=== PATIENT | female | born 1975 | race Caucasian/White ===

== ENCOUNTER 2017-03-11 09:39 | Emergency (ER) | payer OTHER ==
[2017-03-11 10:05] LABS: BASOPHILS 0.2 % (0.0-2.0); EOSINOPHILS 4.6 % (0.0-6.0); EOSINOPHILS# 0.2 X 10^3uL (0.0-0.4); HEMATOCRIT 38.4 % (36.0-48.0); HEMOGLOBIN 12.9 g/dL (12.0-16.0); LYMPHOCYTES 35.9 % (20.0-40.0); LYMPHOCYTES# 1.6 X 10^3uL (0.8-3.8); MEAN CELL VOLUME 86.3 fL (80.0-100.0); MEAN CORPUS. HGB CONCENTRATION 33.7 g/dL (32.0-36.0); MEAN PLATELET VOLUME 9.5 fL (7.4-10.4); MONOCYTES 8.3 % (2.0-10.0); MONOCYTES# 0.4 X 10^3uL (0.2-1.0); NEUTROPHILS# 2.4 X 10^3uL (2.6-6.7); PLATELET COUNT 274 X 10^3uL (130-440); RED BLOOD COUNT 4.45 X 10^6uL (4.20-6.10); RED CELL DISTRIBUTION WIDTH 12.9 % (11.5-14.5); WHITE BLOOD COUNT 4.6 X 10^3uL (3.9-10.7)
[2017-03-11] MEDS ORDERED: ONDANSETRON HCL 4 MG/2 ML VIAL ONE ×2 (10:09→11:12)
[2017-03-11] MEDS ORDERED: NORMAL SALINE IV ONE (10:15)
[2017-03-11] MEDS ORDERED: FOSPHENYTOIN SODIUM IV ONE (10:15)
[2017-03-11 10:16] LABS: BLOOD UREA NITROGEN 7 mg/dL (7-17); CALCIUM 9.3 mg/dL (8.4-10.2); CHLORIDE 107 mmol/L (98-107); EST GLOMERULAR FILTRATION RATE > 60 mL/min; GLUCOSE 109 mg/dL (70-100); POTASSIUM 3.5 mmol/L (3.5-5.1); SODIUM 140 mmol/L (137-145)
[2017-03-11] MEDS ORDERED: ACETAMINOPHEN 325 MG TABLET PO ONE (10:29)
--- NOTE | 2017-03-11 12:33 | ER NURSING DOCUMENTATION ---
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 pt has a seizure disorder with her last seizure was in 2010. pt has a lip lac. Transition of care: [place]. 09:42 Method Of Arrival: EMS: 410 st 09:44 Acuity: DEBBIE 2 st Triage Assessment: 09:42 General: Appears uncomfortable, Behavior is cooperative. Pain: Complains of pain in st lower amrit border and headache. Pain currently is 4 out of 10 on a pain scale. EENT: duane lac threw the lip. Neuro: Level of Consciousness is awake, alert, Oriented to person, place, time, Chief Accountant are equal bilaterally Moves all extremities. Reports pt states that she feel like she had a seizure and that the nausea before is normal for her.. Cardiovascular: No deficits noted. Respiratory: No deficits noted. GI: Reports nausea. Injury Description: Laceration sustained to lower amrit border is jagged, 0.5 to 2.5 cm long. Historical: - Allergies: No known drug Allergies; - Home Meds: 1. Prozac Oral 2. Motrin Oral - PMHx: epiolepsy; - PSHx: tube tied; d and C; - Tetanus: < 10 years. - Ebola Screening: : Patient denies exposure to infectious person. Patient denies travel to an Ebola-affected area in the 21 days before illness onset. . - Social history: Smoking status: Patient states was never smoker of tobacco. Patient/guardian denies using alcohol, marijuana. Screenin:41 Infectious Disease Risk None. Abuse screen: Denies threats or abuse. Denies injuries st from another. pt feels safe at home. Nutritional screening: No deficits noted. Assessment: 11:41 General: pt is currently on her menstrual cycle. . st 11:54 General: pt states she is feeling better except that she is feeling dizzy.. st 12:09 General: pt states she does not feel like she should go yet. She wants to wait for the st dizziness to improve. . Vital Signs: 09:33 BP 124 / 68 (auto/); Pulse 62; Resp 16; Pain 4/10; st 09:38 Pulse Ox 94% ; st 10:10 BP 124 / 68 (auto/); st 10:13 Pulse 66; Pulse Ox 97% ; st 10:30 BP 104 / 58 (auto/); st 10:33 Resp 70; Pulse Ox 95% ; st 10:58 BP 94 / 53 (auto/); Pulse Ox 92% ; st 11:00 BP 94 / 50 (auto/); st 11:03 Pulse 69; Pulse Ox 93% ; st 11:30 BP 98 / 51 (auto/); st 11:33 Pulse 69; Pulse Ox 94% ; Pain 2/10; st Sondra Coma Score: 11:35 Eye Response: spontaneous(4). Verbal Response: oriented(5). Motor Response: obeys cd commands(6). Total: 15. ED Course: 09:42 Patient arrived in ED. lr3 09:[address] 09:44 Leyla Mckeon, RN is Primary Nurse. st 09:[address] 09:45 Valuables Remains with patient Patient has correct armband on for positive st identification. Call light in reach. Side rails up X2. Pulse Ox - RN Monitoring Only NIBP On - RN Monitoring Only. 09:52 Mitch Jones MD is Attending Physician. cd 09:52 Assisted to bedside commode. st 10:[address] 10:[address] 11:03 Assist Provider Assist provider with laceration repair on lower amrit border using st sutures. Set up tray. Performed by Mitch Jones MD. 11:55 Assisted to bedside commode. st Administered Medications: 09:52 Drug: NS 0.9% 1000 ml; Route: IV; Rate: bolus; Site: right antecubital; st 11:01 Follow up: IV Status: Completed infusion; IV Intake: 1000ml st 10:10 Drug: Cerebyx 850 mg; Route: IVPB; Site: right antecubital; st 11:01 Follow up: IV Status: Completed infusion; IV Intake: 100ml st 10: Drug: Acetaminophen 975 mg; Route: PO; st 12:32 Follow up: Response: Pain is decreased st 11: Drug: Zofran 4 mg; Route: IVP; Infused Over: 2 mins; Site: right antecubital; st 11: Follow up: Response: Nausea is decreased st 11: Drug: NS 0.9% 1000 ml; Route: IV; Rate: bolus; Site: right antecubital; st 11:54 Follow up: IV Status: Completed infusion; IV Intake: 1000ml st 11: Drug: Bacitracin Ointment (500 unit/g) 1 application; Route: Topical; Site: wound; st 12: Drug: Zofran 4 mg; Route: PO; 12:32 Follow up: Response: Medication administered at discharge. st Intake: 11:01 IV: 100ml; Total: 100ml. st 11: IV: 1000ml; Total: 1100ml. st IV: 1000ml; Total: 2100ml. st Outcome: 11:25 Discharge ordered by . 12:[address] : Condition: stable 12:32 Discharge instructions given to patient, Instructed on discharge instructions, follow up and referral plans. medication usage, Prescriptions given X 2. :32 Patient [address] the ED. st 03/12 18:09 Discharge F/U Call: Spoke with: patient. Have you filled your prescriptions? yes. nf Overall Care on a scale of 1-10 with 10 being the best care, you rate our care as: Other comments: states she feels improved and laceration is healing Further F/U necessary? None needed Signatures: Leyla Mckeon, RN Inna Mills RN RN nf Daley, Chris, MD MD cd Roach, Lelia [id number]
--- NOTE | 2017-03-11 12:33 | ER PHYSICIAN DOCUMENTATION ---
Physician Documentation [facility] Name:Rosette Meza Age:41 yrs Sex:Female :1975 Arrival Date:03/11/2017 Time:09:39 BedTrauma-B Private MD: Mitch Lane Disposition: 03/11 11:15 Chart complete. cd Disposition: 03/11/17 11:25 Discharged to Home/Self Care. 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 - Condition is Good. - Discharge Instructions: DEHYDRATION (6y-Adult), LACERATION, Lip/Mouth, SEIZURE, Recurrent [Adult]. - Prescriptions for Clindamycin HCl 150 mg Oral - take 1 capsule by ORAL route every 6 hours for 3 days; 12 capsule. Dilantin Kapseal 100 mg Oral Capsule - take 1 capsule by ORAL route every 8 hours; 30 capsule. - Medical Reconciliation form form. - Follow up: Private Physician; When: 03/16/2017; Reason: Continuance of care, Staple/Suture removal. - Problem is new. - Symptoms are resolved. - Notes: Keep wound clean, dry and covered. Apply Bacitracin Ointment to wound every day. Ice pack on and off to lip today. Tylenol for pain. Drink 2 - 3 quarts of water every day to stay hydrated. Take Dilantin Kapseals 100mg by mouth every 8 hours for 10 days. Follow up with your Neurologist in 7 - 10 days to see if you need to continue Dilantin. Take Clindamycin 150mg by mouth every 6 hours for 3 days to prevent infection. No driving, horseback riding or any activities where she could fall during a seizure until cleared by her Neurologist. HPI: 09:45 This 41 yrs old Female presents to ER via EMS with complaints of Seizure and cd lip lac. 09:45 The patient presents after having a single isolated seizure, that lasted 1 minute(s), cd the episode(s) was witnessed, by family. Character of seizure(s): Loss of consciousness: the patient experienced loss of consciousness, Motor activity: generalized, shaking all over, Incontinence: none, Apnea: the patient did not experience apnea, Circulation: the patient did not experience evidence of pulse disturbance. Seizure onset: just prior to arrival. Context: the seizure(s) was witnessed, by family, occurred outdoors, occurred while the patient was sitting. Seizure Hx: Original onset: since childhood,\ Cause: unknown, Last seizure: The patient's last seizure was approximately 6 year(s) ago, Seizure medications: none. Associated injury: Head/face: lower lip, laceration, 1.5 cm(s). EMS care: IV fluids, supplemental oxygen. The patient has experienced similar episodes in the past, with the last episode occurring 6 year(s) ago. Historical: - Allergies: No known drug Allergies; - Home Meds: 1. Prozac Oral 2. Motrin Oral - PMHx: epiolepsy; - PSHx: tube tied; d and C; - Tetanus: < 10 years. - Ebola Screening: : Patient denies exposure to infectious person. Patient denies travel to an Ebola-affected area in the 21 days before illness onset. . - Social history: Smoking status: Patient states was never smoker of tobacco. Patient/guardian denies using alcohol, marijuana. ROS: 11:35 Eyes: Negative for injury, pain, redness, discharge, blurry vision and loss of vision. cd Cardiovascular: Negative for chest pain, palpitations, edema and pleuritic pain. Respiratory: Negative for shortness of breath, dyspnea on exertion, cough, sputum production, wheezing, hemoptysis and pleuritic chest pain. Abdomen/GI: Negative for abdominal pain, nausea, vomiting, diarrhea, constipation, distension, melena, hematochezia and hematemesis. Back: Negative for injury, pain or muscle spasms. MS/Extremity: Negative for injury, deformity, edema, calf tenderness, pain or coldness. 11:35 Skin: Negative for injury, rash, itching and discoloration. cd 11:35 Constitutional: Positive for poor PO intake, Negative for body aches, chills, fever. 11:35 ENT: Positive for injury or acute deformity, laceration, of the lower lip through and through bite wound. 11:35 Neck: Negative for pain with movement, pain at rest, bony tenderness. 11:35 Neuro: Positive for headache, seizure activity, Negative for altered mental status, dizziness, speech changes, syncope, near syncope, tingling. 11:35 All other systems are negative. Exam: Chest/axilla: Normal chest wall appearance and motion. Nontender with no deformity. No lesions are appreciated. Cardiovascular: Regular rate and rhythm with a normal S1 and S2. No gallops, murmurs, or rubs. Normal PMI, no JVD. No pulse deficits. Respiratory: Lungs have equal breath sounds bilaterally, clear to auscultation and percussion. No rales, rhonchi or wheezes noted. No increased work of breathing, no retractions or nasal flaring. Abdomen/GI: Soft, non-tender, with normal bowel sounds. No distension or tympany. No guarding or rebound. No evidence of tenderness throughout. Back: No spinal tenderness. No costovertebral tenderness. Full range of motion. 11:35 MS/ Extremity: Pulses equal, no cyanosis. Neurovascular intact. Full, normal range cd of motion. 11:35 Constitutional: The patient appears alert, awake, non-diaphoretic, non-toxic, well developed, well nourished, anxious, in obvious distress, mildly distressed. 11:35 Head/face: Noted is a laceration(s), that is jagged, 1.5 cm(s), of the lower inner and outer lip. 11:35 Eyes: Pupils: equal, round, and reactive to light and accomodation, Extraocular movements: intact throughout. 11:35 ENT: TM's: are normal, Mouth: Lips: lacerated, approximately 1.5 cm(s), Posterior pharynx: is normal, Dental exam: normal, Voice: is normal. 11:35 Neck: External neck: is normal, no acute changes, C-spine: vertebral tenderness, is not appreciated, ROM/movement: is normal, no acute changes. 11:35 Skin: Appearance: normal except for affected area. 11:35 Neuro: Orientation: is normal, Mentation: lucid, slow to respond, Memory: is normal, Cranial nerves: CN II- XII are normal as tested, Motor: moves all fours, Sensation: is normal. Vital Signs: 09:33 BP 124 / 68 (auto/); Pulse 62; Resp 16; Pain 4/10; st 09:38 Pulse Ox 94% ; st 10:10 BP 124 / 68 (auto/); st 10:13 Pulse 66; Pulse Ox 97% ; st 10:30 BP 104 / 58 (auto/); st 10:33 Resp 70; Pulse Ox 95% ; st 10:58 BP 94 / 53 (auto/); Pulse Ox 92% ; st 11:00 BP 94 / 50 (auto/); st 11:03 Pulse 69; Pulse Ox 93% ; st 11:30 BP 98 / 51 (auto/); st 11:33 Pulse 69; Pulse Ox 94% ; Pain 2/10; st Sondra Coma Score: 11:35 Eye Response: spontaneous(4). Verbal Response: oriented(5). Motor Response: obeys cd commands(6). Total: 15. MDM: 09:52 Patient medically screened. cd 09:55 Differential diagnosis: seizure, Dehydration, Lip Laceration. cd 10:00 Data interpreted: Pulse oximetry: on room air is 92 %. Interpretation: normal. cd 11:15 Counseling: I had a detailed discussion with the patient and/or guardian regarding: the cd historical points, exam findings, and any diagnostic results supporting the discharge/admit diagnosis, lab results, the need for outpatient follow up, for a recheck, for a referral to a specialist, with the patient's primary care provider, a neurologist, to return to the emergency department if symptoms worsen or persist or if there are any questions or concerns that arise at home. Response to treatment: the patient's symptoms have markedly improved after treatment, the patient's condition has returned to base line, the patient is now symptom free, patient is well hydrated. and as a result, I will discharge patient. 11:20 Neurological re-evaluation: normal neurological exam including cranial nerves, cd orientation, mentation, motor and sensory exam, cerebellar testing, GCS normal, and normal gait. Data reviewed: vital signs, nurses notes, EMS record, old medical records, lab test result(s), and as a result, I will discharge patient. 03/11 10:13 Order name: CBC AUTO DIF, MDIF/RMOR IF IND; Complete Time: 10:21 EDMS 03/11 10:21 Interpretation: Normal. cd 03/11 10:19 Order name: BASIC METABOLIC PANEL; Complete Time: 10:21 EDMS 03/11 10:21 Interpretation: Normal. cd 03/11 10:19 Order name: MAGNESIUM; Complete Time: 10:21 EDMS 03/11 10:21 Interpretation: Normal. cd Dispensed Medications: 09:52 Drug: NS 0.9% 1000 ml; Route: IV; Rate: bolus; Site: right antecubital; st 11:01 Follow up: IV Status: Completed infusion; IV Intake: 1000ml st 10:10 Drug: Cerebyx 850 mg; Route: IVPB; Site: right antecubital; st 11:01 Follow up: IV Status: Completed infusion; IV Intake: 100ml st 10:17 Drug: Acetaminophen 975 mg; Route: PO; st 12:32 Follow up: Response: Pain is decreased st 11:01 Drug: Zofran 4 mg; Route: IVP; Infused Over: 2 mins; Site: right antecubital; st 11:26 Follow up: Response: Nausea is decreased st 11:17 Drug: NS 0.9% 1000 ml; Route: IV; Rate: bolus; Site: right antecubital; st 11:54 Follow up: IV Status: Completed infusion; IV Intake: 1000ml st 11:26 Drug: Bacitracin Ointment (500 unit/g) 1 application; Route: Topical; Site: wound; st 12:32 Drug: Zofran 4 mg; Route: PO; st 12:32 Follow up: Response: Medication administered at discharge. st Signatures: Leyla Mckeon RN RN Mitch Hastings MD MD cd
[2017-03-11] MEDS ORDERED: ONDANSETRON ODT 4 MG TAB.RAPDIS ONE (12:43)
== END 2017-03-11 12:33 | disposition home or self-care (01) ==
LOC: ER 09:39
DX: G40.309 Generalized idiopathic epilepsy and epileptic syndromes, not intractable, without status epilepticus (principal); E86.0 Dehydration; S01.511A Laceration without foreign body of lip, initial encounter; W18.39XA Other fall on same level, initial encounter; Y92.89 Other specified places as the place of occurrence of the external cause; R51 Headache; Z79.899 Other long term (current) drug therapy; Z99.89 Dependence on other enabling machines and devices; Z74.3 Need for continuous supervision
CPT/HCPCS: 80048; 83735; 85025; 96361; 96365; 96375; 99284; A0425; A0427; J2405